=== PATIENT | male | born 1950 | race Caucasian/White ===

== ENCOUNTER 2021-11-14 07:58 | Observation (INO) ==
[2021-11-14] MEDS ORDERED: Famotidine 20 MG/2 ML VIAL IVP ONE (08:44)
[2021-11-14] MEDS ORDERED: Acetaminophen IV 1,000 MG/100 ML BAG IVPB ONE (08:45)
[2021-11-14] MEDS ORDERED: CeFAZolin Syr 2,000MG/20 ML 2,000 MG/20 ML SYRINGE IVPB ONE (09:07)
[2021-11-14] MEDS ORDERED: Ringers Solution, Lactated 1,000 ML IVC SCH ×2 (09:15→14:50)
[2021-11-14] MEDS ORDERED: *HR* Midazolam HCl 2 MG/2 ML VIAL ONE ×2 (09:45→10:19)
[2021-11-14] MEDS ORDERED: Povidone-Iodine 45 ML, Sodium Chloride IRRigation 1,000 ML IR ONE (10:00)
[2021-11-14] MEDS ORDERED: Ondansetron 4 MG/2 ML VIAL ONE (10:58)
[2021-11-14] MEDS ORDERED: Lidocaine -MPF 2% 5 ML VIAL ONE (10:58)
[2021-11-14] MEDS ORDERED: Tranexamic Acid 1,000 MG/10 ML VIAL ONE (10:58)
[2021-11-14] MEDS ORDERED: Ketamine HCL *QUVA* 50mg (1mL) SYRINGE ONE (11:19)
[2021-11-14] MEDS ORDERED: EPHEDrine 50 MG/ML VIAL ONE (11:35)
[2021-11-14] MEDS ORDERED: MOM Conc 10 ML UD.LIQ PO PRN (14:50)
[2021-11-14] MEDS ORDERED: Ondansetron 4 MG/2 ML VIAL IVP PRN (14:50)
[2021-11-14] MEDS ORDERED: *HR* HYDROmorphone (PF) 1 MG/ML SYRINGE IVP PRN (14:50)
[2021-11-14] MEDS ORDERED: *HR* Promethazine 25 MG/ML VIAL IM PRN (14:50)
[2021-11-14] MEDS ORDERED: Sennosides 8.6 MG TABLET PO PRN (14:50)
[2021-11-14] MEDS ORDERED: *HR* OxyCODONE Immed Rel 5 MG TABLET PO PRN (14:50)
[2021-11-14] MEDS ORDERED: Naloxone 0.4 MG/ML INJ IVP PRN (14:50)
[2021-11-14] MEDS: Ascorbic Acid 500 MG TABLET PO SCH (16:03)
[2021-11-14] MEDS: CeFAZolin 2 GM/120 ML BAG IVPB SCH ×2 (16:03→23:18)
[2021-11-14] MEDS: Carbidopa/Levodopa 25/100 TABLET PO SCH ×2 (16:32→21:20)
[2021-11-15] MEDS: Carbidopa/Levodopa 25/100 TABLET PO SCH ×4 (05:10→20:27)
[2021-11-15 05:17] LABS: Basophils % 0.2 %; Eosinophils % 0.1 %; Hematocrit 37.9 % (37.5-50.1); Hemoglobin 12.8 g/dL (12.9-16.9); Immature Granulocytes % 0.4 % (0-4); Lymphocytes # 1.2 K/mcL (0.6-4.6); Lymphocytes % 12.6 %; Mean Corpuscular HGB Conc 33.8 g/dL (31.6-35.5); Mean Corpuscular Hemoglobin 30.2 pg (28.0-33.3); Mean Corpuscular Volume 89.4 fL (83.0-100.0); Mean Platelet Volume 8.9 fL (9.4-12.4); Monocytes % 10.6 %; Platelet Count 159 K/mcL (140-400); Red Blood Count 4.24 M/mcL (4.19-5.50); Red Cell Distribution Width 12.7 % (11.5-14.5); Segmented Neutrophils % 76.1 %; White Blood Count 9.2 K/mcL (4.3-11.1)
[2021-11-15 07:36] LABS: Calcium 9.4 mg/dL (8.6-10.3); Potassium 4.2 mEq/L (3.5-5.1)
[2021-11-15] MEDS: Ascorbic Acid 500 MG TABLET PO SCH ×2 (08:37→18:05)
[2021-11-15] MEDS: Multivit/Ca/Min/Fe/FA 1 TAB TABLET PO SCH (08:39)
[2021-11-15] MEDS ORDERED: QUERCETIN DIHYDRATE 1 GM PO SCH (09:00)
[2021-11-15] MEDS: Aspirin Enteric Coated 325 MG Tablet PO SCH ×2 (14:11→20:27)
[2021-11-15] MEDS: HYDROcodone BIT/Homatropine 5 MG TABLET PO PRN ×2 (14:11→23:23)
[2021-11-16 03:01] LABS: Basophils % 0.2 %; Eosinophils % 0.3 %; Hematocrit 36.9 % (37.5-50.1); Hemoglobin 12.6 g/dL (12.9-16.9); Immature Granulocytes % 0.8 % (0-4); Lymphocytes # 1.3 K/mcL (0.6-4.6); Lymphocytes % 13.6 %; Mean Corpuscular HGB Conc 34.1 g/dL (31.6-35.5); Mean Corpuscular Hemoglobin 30.7 pg (28.0-33.3); Mean Corpuscular Volume 89.8 fL (83.0-100.0); Monocytes # 1.2 K/mcL (0.0-1.3); Monocytes % 12.8 %; Platelet Count 154 K/mcL (140-400); Red Blood Count 4.11 M/mcL (4.19-5.50); Segmented Neutrophils % 72.3 %; White Blood Count 9.7 K/mcL (4.3-11.1)
[2021-11-16 03:23] LABS: Calcium 9.2 mg/dL (8.6-10.3); Potassium 3.8 mEq/L (3.5-5.1)
[2021-11-16] MEDS: Carbidopa/Levodopa 25/100 TABLET PO SCH ×2 (06:13→13:07)
[2021-11-16] MEDS: HYDROcodone BIT/Homatropine 5 MG TABLET PO PRN (06:13)
[2021-11-16 10:24] VITALS: BP 147/85; PULSE 80; TEMP 98.5; O2SAT 94
[2021-11-16] MEDS: Ascorbic Acid 500 MG TABLET PO SCH (10:26)
[2021-11-16] MEDS: Multivit/Ca/Min/Fe/FA 1 TAB TABLET PO SCH (10:26)
[2021-11-16] MEDS: Aspirin Enteric Coated 325 MG Tablet PO SCH (10:26)
== END 2021-11-16 14:20 | disposition home or self-care (01) ==
LOC: 4WAOSI 07:58 → SDCAOSI 07:58 → 4WAOSI 14:30
PROVIDERS: ADMIT Orthopaedic Surgery; ATTEND Orthopaedic Surgery